=== PATIENT | male | born 1945 | race Caucasian/White ===

== ENCOUNTER → 2020-01-30 12:45 | Outpatient (CLI) | payer MEDICARE, OTHER, SELFPAY ==
--- NOTE | 2020-01-30 | DI.RAD.S_ITS ---
PROCEDURE: XR LUMBAR SPINE 2-3V INDICATIONS: ARTHRODESIS STATUS TECHNIQUE: 3 views of the lumbar spine were acquired. COMPARISON: None. FINDINGS: Bones: No fracture or focal osseous destruction. Straightening of the normal lordotic curvature. Status post posterior spinal fixation from L2-3 with paraspinal rods and pedicle screws. Interbody cage graft also noted. Hardware appears grossly intact. Expected postoperative alignment. Trace retrolisthesis of L3 on L4 Severe L1-L2 and L5-S1 disc degeneration. Mild narrowing of the remaining lumbar disc spaces Multilevel degenerative endplate sclerosis and spurring. Diffuse facet arthropathy. Scattered vascular calcifications seen in the aorta. Prominent left abdominal calcification, possibly incidental nephrolithiasis measuring 1.5 cm. IMPRESSION: Status post L2-L3 posterior spinal fixation and interbody cage graft. Expected postoperative alignment. Hardware appears intact. Lumbar spondylosis most pronounced at L1-L2 and L5-S1 Facet disease Trace retrolisthesis of L3 on L4. Dictated by: John Contreras M.D. on 01/30/2020 at 14:26 Approved by: John Contreras M.D. on 01/30/2020 at 14:29
== END ==
PROVIDERS: Referring Provider Orthopaedic Surgery; Visit Provider Orthopaedic Surgery
DX: M47.816 Spondylosis without myelopathy or radiculopathy, lumbar region (principal); M47.817 Spondylosis without myelopathy or radiculopathy, lumbosacral region; Z98.1 Arthrodesis status
CPT/HCPCS: 72100

== ENCOUNTER → 2020-03-13 07:37 | Outpatient (CLI) | payer MEDICARE, OTHER, SELFPAY ==
[2020-03-13 08:48] LABS: Cholesterol 188 mg/dL (140-199); HDL Cholesterol 72 mg/dL (40-60); LDL Cholesterol Calculated 103 mg/dL (<100); Triglycerides 65 mg/dL (35-150)
== END ==
PROVIDERS: Referring Provider Family Medicine; Visit Provider Family Medicine
DX: Z79.899 Other long term (current) drug therapy (principal); E78.5 Hyperlipidemia, unspecified; M81.0 Age-related osteoporosis without current pathological fracture; N40.1 Benign prostatic hyperplasia with lower urinary tract symptoms; R35.0 Frequency of micturition; N32.81 Overactive bladder; E61.1 Iron deficiency
CPT/HCPCS: 36415; 80061

== ENCOUNTER → 2022-09-07 07:08 | Outpatient (CLI) | payer MEDICARE, OTHER, SELFPAY ==
[2022-09-07 08:07] LABS: Hemoglobin A1C% w Est Avg Glu 5.8 % (4.0-6.0)
[2022-09-07 08:29] LABS: Alanine Aminotransferase 24 IU/L (<50); Albumin 4.1 g/dL (3.5-5.0); Albumin Globulin Ratio 1.5 (1.0-2.8); Alkaline Phosphatase 63 U/L (38-126); Aspartate Aminotransferase 18 IU/L (17-59); BUN Creatinine Ratio 27.5 (6-22); Bilirubin Total 0.5 mg/dL (0.2-1.3); Bilirubin Unconjugated 0.4 mg/dL (0.0-1.1); Blood Urea Nitrogen 19 mg/dL (9-20); Calcium 8.9 mg/dL (8.4-10.2); Carbon Dioxide 28 mmol/L (22-32); Chloride 104 mmol/L (98-107); Cholesterol 165 mg/dL (140-199); Estimated Glomerular Filt Rate > 60 mL/min (>60); Globulin 2.7 g/dL (1.7-4.1); Glucose 96 mg/dL (80-110); HDL Cholesterol 52 mg/dL (40-60); HEMOLYSIS < 15 (0-50); LDL Cholesterol Calculated 95 mg/dL (<100); Potassium 3.9 mmol/L (3.4-5.1); Sodium 141 mmol/L (137-145); Total Protein 6.8 g/dL (6.3-8.2); Triglycerides 89 mg/dL (35-150); Uric Acid 4.1 mg/dL (3.5-8.5)
[2022-09-07 08:57] LABS: Prostate Specific Antigen Scrn 1.75 ng/mL (0.1-4.0)
[2022-09-07 09:18] LABS: Hep C Virus Ab w/Reflex Quant NEGATIVE s/c (NEGATIVE)
== END ==
PROVIDERS: PCP Family Medicine; Referring Provider Family Medicine; Visit Provider Family Medicine
DX: Z13.1 Encounter for screening for diabetes mellitus (principal); E78.5 Hyperlipidemia, unspecified; Z12.5 Encounter for screening for malignant neoplasm of prostate; M10.9 Gout, unspecified; I10 Essential (primary) hypertension; Z00.00 Encounter for general adult medical examination without abnormal findings; Z12.11 Encounter for screening for malignant neoplasm of colon
CPT/HCPCS: 36415; 80048; 80061; 80076; 83036; 84550; 86803; G0103

== ENCOUNTER → 2022-09-08 07:50 | Outpatient (CLI) | payer MEDICARE, OTHER, SELFPAY ==
[2022-09-14 17:11] LABS: Fecal Immunochemical Test Negative (Negative)
== END ==
PROVIDERS: PCP Family Medicine; Referring Provider Family Medicine; Visit Provider Family Medicine
DX: Z00.00 Encounter for general adult medical examination without abnormal findings (principal); Z12.11 Encounter for screening for malignant neoplasm of colon
CPT/HCPCS: 82274

== ENCOUNTER → 2022-11-08 14:44 | Outpatient (CLI) | payer MEDICARE, OTHER, SELFPAY ==
--- NOTE | 2022-11-08 14:46 | DI.CT.S_ITS ---
P is ROCEDURE: CT KIDNEY URETER BLADDER (KUB) INDICATIONS: Calculus of kidney TECHNIQUE: Axial sections were acquired from the lung bases to the pubic symphysis. Coronal and sagittal reformats were performed. For radiation dose reduction, the following was used: automated exposure control, adjustment of mA and/or kV according to patient size. COMPARISON: None. FINDINGS: Image quality: Degraded by motion and metallic artifact. Lower chest: On image 3/ there is a pulmonary micro nodule, which can be followed in [address] for high risk patients. Right Bochdalek's hernia. Small hiatal hernia. Solid organs: Limited evaluation without intravenous contrast. The liver is unremarkable. Gallbladder is unremarkable. No pathologic dilation of the biliary tree or pancreatic duct. No splenomegaly. No adrenal nodules. No right hydronephrosis. No right calcified stone. Moderate left edema of the kidney. Edema extends into the ureter and renal pelvis. No calcified stone is visible, although the UVJ is not well seen. There is questionable soft tissue thickening at the level of the UVJ on the left (/). Vessels and lymph nodes: No abdominal aortic aneurysm or pathologic adenopathy by size criteria. Bowel and peritoneum: No evidence of small bowel obstruction. No pathologic ascites. There are colonic diverticula. Body wall: Unremarkable. Atrophy of some of the thigh musculature. Pelvis: Difficult to evaluate due to metallic artifact. There are prostate calcifications and suspected prostatomegaly, PSA correlation could be considered. Bones: Bilateral hip arthroplasties, with surrounding metallic artifact. Scattered degenerative changes. Lumbar spinal hardware. Is IMPRESSION: Moderate left hydronephrosis and renal edema, implying collecting system obstruction. Inflammation extends throughout the left ureter. The pelvis however, is obscured by metallic artifact. No obstructing stone can be identified. There is ill-defined soft tissue density at the left UVJ (/). Please consider urologic consultation for further evaluation. Other findings as above. Dictated by: Joseph Lozada M.D. on 11/08/2022 at 17:26 Approved by: Joseph Lozada M.D. on 11/08/2022 at 17:34
== END ==
PROVIDERS: PCP Family Medicine; Referring Provider Physician Assistant; Visit Provider Physician Assistant
DX: N20.0 Calculus of kidney (principal); N13.30 Unspecified hydronephrosis; N04.9 Nephrotic syndrome with unspecified morphologic changes; K57.90 Diverticulosis of intestine, part unspecified, without perforation or abscess without bleeding; Z96.643 Presence of artificial hip joint, bilateral
CPT/HCPCS: 74176

== ENCOUNTER → 2022-11-15 13:03 | Outpatient (CLI) | payer MEDICARE, OTHER, SELFPAY ==
[2022-11-15 13:52] LABS: Appearance Urine UA CLEAR; Bilirubin Urine UA NEGATIVE (NEGATIVE); Color Urine UA YELLOW; Glucose Urine UA NEGATIVE (Negative); Ketones Urine UA NEGATIVE (NEGATIVE); Leukocyte Esterase Urine UA 2+ (NEGATIVE); Nitrite Urine UA NEGATIVE (Negative); Occult Blood Urine UA TRACE-LYSED (Negative); Protein Urine UA NEGATIVE (Negative); Specific Gravity Urine UA <=1.005 (1.000-1.035); Urobilinogen Urine UA 0.2 E.U./dL (0.2); pH Urine UA 6.5 (4.5-8.0)
[2022-11-15 14:02] LABS: Bacteria Urine Occasional (0-1); RBC Urine 0-1/HPF (0-5/HPF); Squamous Epithelial Cell Urine 0-1 /HPF (0-5/HPF); WBC Urine 1-5/HPF (0-5/HPF)
[2022-11-15 14:03] LABS: Culture Indicated Urine Specimen Cultured
== END ==
PROVIDERS: PCP Family Medicine; Referring Provider Physician Assistant; Visit Provider Physician Assistant
DX: N20.1 Calculus of ureter (principal)
CPT/HCPCS: 81001; 87077; 87086

== ENCOUNTER → 2023-02-04 07:16 | Outpatient (CLI) | payer MEDICARE, OTHER, SELFPAY ==
[2023-02-04 07:58] LABS: Add Manual Diff / Slide Review NO; Basophils Absolute Auto 0 /uL (0-100); Basophils Percent Auto 0.6 % (0-2); Eosinophils Absolute Auto 100 /uL (0-450); Hematocrit 38.3 % (41-53); Lymphocytes Absolute Auto 1400 /uL (1100-4500); Lymphocytes Percent Auto 31.6 % (25-40); Mean Corpuscular HGB Conc 33.9 % (30-36); Mean Corpuscular Hemoglobin 30.7 PG (26-34); Mean Corpuscular Volume 90.8 fL (80-100); Monocytes Absolute Auto 500 /uL (0-900); Monocytes Percent Auto 10.7 % (3-14); Neutrophils Absolute Auto 2500 /uL (1500-7000); Neutrophils Percent Auto 55.1 % (50-75); Platelet Count 139 X10^3/uL (150-400); Red Blood Cell Count 4.22 X10^6/uL (4.5-5.9); Red Cell Distribution Width 14.8 % (11.6-14.8); White Blood Cell Count 4.6 X10^3/uL (4.5-11.0)
[2023-02-04 08:04] LABS: Alanine Aminotransferase 25 IU/L (<50); Albumin 3.9 g/dL (3.5-5.0); Albumin Globulin Ratio 1.3 (1.0-2.8); Alkaline Phosphatase 70 U/L (38-126); Aspartate Aminotransferase 23 IU/L (17-59); BUN Creatinine Ratio 28.1 (6-22); Bilirubin Total 0.4 mg/dL (0.2-1.3); Blood Urea Nitrogen 18 mg/dL (9-20); Calcium 8.7 mg/dL (8.4-10.2); Carbon Dioxide 27 mmol/L (22-32); Chloride 106 mmol/L (98-107); Cholesterol 151 mg/dL (140-199); Estimated Glomerular Filt Rate > 60 mL/min (>60); Globulin 2.9 g/dL (1.7-4.1); Glucose 119 mg/dL (80-110); HDL Cholesterol 52 mg/dL (40-60); HEMOLYSIS < 15 (0-50); LDL Cholesterol Calculated 83 mg/dL (<100); Potassium 3.7 mmol/L (3.4-5.1); Sodium 138 mmol/L (137-145); Total Protein 6.8 g/dL (6.3-8.2); Triglycerides 81 mg/dL (35-150)
[2023-02-04 09:17] LABS: Thyroid Stimulating Hormone 3.91 uIU/mL (0.47-4.68)
[2023-02-05 09:51] LABS: x Labcorp Estim. Avg Glu (eAG) 117 mg/dL (.); x Labcorp Hemoglobin A1c 5.7 % (4.8-5.6)
== END ==
PROVIDERS: PCP Family Medicine; Referring Provider Internal Medicine Cardiovascular Disease; Visit Provider Internal Medicine Cardiovascular Disease
DX: Z79.899 Other long term (current) drug therapy (principal)
CPT/HCPCS: 36415; 80053; 80061; 83036; 84443; 85025

== ENCOUNTER → 2023-02-25 10:30 | Outpatient (CLI) | payer MEDICARE, OTHER, SELFPAY ==
--- NOTE | 2023-02-25 | DI.CT.S_ITS ---
PROCEDURE: CT UE RT W CON INDICATIONS: PAIN IN RT SHOULDER/ROTATOR CUFF TEAR TECHNIQUE: After the intra-articular administration of 12 mL of dilute non-ionic contrast, 1-1.5 mm thick sections acquired from the acromioclavicular joint to the inferior scapula, with coronal and sagittal reformatting. COMPARISON: [facility], [place] SHOULDER INJECTION MR/CT RT, 02/25/2023, 10:52. FINDINGS: Image quality: Diagnostic. Significant beam hardening artifacts from right shoulder prosthesis are seen. Bones: There is prior right shoulder arthroplasty. Surgical hardwareare seen in their expected location. No evidence of hardware loosening or failure. Expected postsurgical widening of acromioclavicular joint is seen. No acute fracture or dislocation. No suspicious bony lesions. The visualized right upper ribs are intact. Soft tissues: There is mild superior migration of humeral head prosthesis in relation to the glenoid prosthesis. No full-thickness rotator cuff tendon rupture is seen. No significant muscle atrophy is seen on sagittal views. No definite intra-articular loose body is noted. No abnormal soft tissue calcifications. IMPRESSION: 1. Prior right shoulder arthroplasty. No evidence of hardware loosening or failure. No acute fracture or dislocation. Expected postsurgical widening of acromioclavicular joint. No suspicious bony lesions. 2. No full-thickness rotator cuff tendon rupture. Superior migration of humeral head component in relation to acetabular component concerning for partial-thickness tear involving distal supraspinatus. No significant muscle atrophy is seen on sagittal images. No abnormal soft tissue calcifications. No gross intra-articular loose bodies. Dictated by: Krish Pearce M.D. on 02/25/2023 at 14:21 Approved by: Krish Pearce M.D. on 02/25/2023 at 14:32
--- NOTE | 2023-02-25 | DI.RAD.S_ITS ---
PROCEDURE: [place] SHOULDER INJECTION MR/CT RT INDICATIONS: PAIN IN RT SHOULDER/ROTATOR CUFF TEAR COMPARISON: [facility], CT, CT UE RT W CON, 02/25/2023, 11:16. [facility] [place], [place], XR SHOULDER 2+ VIEWS RIGHT, 02/14/2023, 10:39. TECHNIQUE: There is shoulder arthroplasty with a shoulder prosthesis. Metallic artifact obscure visualization of needle. The indications, alternatives, benefits, risks, and complications of the procedure were explained to the patient. Written informed consent was obtained and placed in the chart. The shoulder was examined fluoroscopically and a site for needle placement chosen for entry into the glenohumeral joint from an anterior approach. The skin was prepped and draped in a sterile fashion, and 1% lidocaine infiltrated from skin down to joint capsule. A spinal needle was inserted into the glenohumeral joint. Approximately 12 mL of iodinated contrast was injected into the shoulder joint. The needle was removed and a dressing was applied. The patient was given postprocedural instructions and sent to the CT suite for imaging. FINDINGS: There is a shoulder prosthesis. IMPRESSION: Successful fluoroscopically guided administration of iodinated contrast solution into the shoulder joint for CT arthrogram. Dictated by: Alana Van M.D. on 02/25/2023 at 13:04 Approved by: Alana Van M.D. on 02/25/2023 at 13:09
== END ==
PROVIDERS: PCP Family Medicine; Referring Provider Orthopaedic Surgery; Visit Provider Orthopaedic Surgery
DX: M25.511 Pain in right shoulder (principal); Z96.611 Presence of right artificial shoulder joint
CPT/HCPCS: 23350; 73201; 77002

== ENCOUNTER → 2023-04-15 11:41 | Outpatient (CLI) | payer MEDICARE, OTHER, SELFPAY ==
--- NOTE | 2023-04-15 11:49 | DI.RAD.S_ITS ---
PROCEDURE: XR KNEE LT 3V INDICATIONS: pain in left and right knee TECHNIQUE: 3 views of the knee were acquired. COMPARISON: None. FINDINGS: Bones: Normal mineralization. No fractures. Mild tricompartment joint space loss and minimal patellofemoral compartment spur formation. Soft tissues: Small joint effusion. No suspicious soft tissue calcifications. No chondrocalcinosis. IMPRESSION: 1. Small joint effusion without other visible joint or bony abnormality. 2. Tricompartment mild joint space loss. Dictated by: Tracey Lieberman M.D. on 04/15/2023 at 16:00 Approved by: Tracey Lieberman M.D. on 04/15/2023 at 16:10
--- NOTE | 2023-04-15 11:49 | DI.RAD.S_ITS ---
PROCEDURE: XR KNEE RT 3V INDICATIONS: pain in left and right knee TECHNIQUE: 3 views of the knee were acquired. COMPARISON: None. FINDINGS: Bones: Normal mineralization. No fractures. No suspicious bone lesions. Moderate tricompartment joint space loss with mild to moderate marginal spurring, most significant in the patellofemoral compartment. Soft tissues: Small joint effusion. No chondrocalcinosis. No soft tissue foreign bodies. IMPRESSION: 1. Moderate tricompartment osteoarthritis and small joint effusion. Dictated by: Tracey Lieberman M.D. on 04/15/2023 at 16:10 Approved by: Tracey Lieberman M.D. on 04/15/2023 at 16:11
== END ==
PROVIDERS: PCP Family Medicine; Referring Provider Internal Medicine; Visit Provider Internal Medicine
DX: M25.561 Pain in right knee (principal); M25.562 Pain in left knee; M17.11 Unilateral primary osteoarthritis, right knee; M25.462 Effusion, left knee; M25.461 Effusion, right knee
CPT/HCPCS: 73562